=== PATIENT | male | born 1990 | race African-American/Black ===

== ENCOUNTER 2018-01-18 16:20 | Emergency (ER) | payer OTHER ==
[~2018-01-18] VITALS: Ht 172.7 cm; Wt 65.2 kg
[2018-01-18 16:33] VITALS: BP 139/95
[2018-01-18] MEDS ORDERED: ULTRAM50 MG PO (17:29)
== END 2018-01-18 17:42 | disposition home or self-care (01) ==
LOC: EME 16:20
DX: S20.212A Contusion of left front wall of thorax, initial encounter (principal); S20.211A Contusion of right front wall of thorax, initial encounter; Y93.67 Activity, basketball; F17.200 Nicotine dependence, unspecified, uncomplicated
CPT/HCPCS: 71046; 99281; 99283